=== PATIENT | female | born 1945 | race Caucasian/White ===

== ENCOUNTER → 2019-01-28 | Day surgery (SDC) | payer OTHER ==
--- OUTSIDE RECORDS SUMMARY | 2019-01-28 09:16 | XMS REPORT | Summary of Care ---
:1945 Author Organization [facility] - Health Address [address] [place] [address] Care Team Providers Name Role Phone Unavailable Primary Care Provider Unavailable Encounter Details Date Type Department Care Team Description 01/20/2019 Orders Only [facility] Doctor Unassigned, No [address] [facility] [place] [address] [address] [place] [address] Allergies No Known Allergiesdocumented as of this encounter (statuses as of 01/20/2019) Medications Medication Sig Dispensed Refills Start Date End Date Status MULTIVITS W-FE,OTHER Take 1 Tab by 0 Active MIN/LUT (CENTRUM SILVER mouth daily. ULTRA WOMEN'S ORAL) Cholecalciferol, Vitamin Take 2 Caps by 0 Active D3, (VITAMIN D3) 1,000 mouth daily. unit Cap aspirin 81 mg EC tablet Take 81 mg by 0 Active mouth daily. Lysine (L-LYSINE EXTRA Take 1 Tab by 0 Active STRENGTH) 1,000 mg Tab mouth as needed. dicyclomine (BENTYL) 20 Take 1 Tab by 20 Tab 0 07/13/2015 Active mg tablet mouth 4 (four) times daily. ondansetron (ZOFRAN, Take 1 Tab by 12 Tab 0 07/13/2015 Active HYDROCHLORIDE,) 4 mg mouth every 8 tablet (eight) hours as needed for Nausea and Vomiting (N/V). alendronate 70 mg tablet 0 10/27/2018 Active mupirocin 2 % Apply to 22 g 0 11/10/2018 Active ointmentIndications: area(s) 3 Paronychia of finger, (three) times right daily. Rub in well to right fingernail 3 times a day. methylPREDNISolone 4 mg Take by mouth 21 Each 0 12/03/2018 Active tabletsIndications: SEE-INSTRUCTIONS Allergic reaction, . follow package initial encounter, directions Periorbital erythema documented as of this encounter (statuses as of 01/20/2019) Active Problems Problem Noted Date S/P laparoscopic cholecystectomy 12/31/2014 documented as of this encounter (statuses as of 01/20/2019) Social History Tobacco Use Types Packs/Day Years Used Date Never Smoker Smokeless Tobacco: Never Used Alcohol Use Drinks/Week oz/Week Comments No Sex Assigned at Date Recorded Not on file Job Start Date Occupation Industry Not on file Not on file Not on file Travel History Travel Start Travel End No recent travel history available. documented as of this encounter Last Filed Vital Signs Not on filedocumented in this encounter Plan of Treatment Health Maintenance Due Date Last Done Comments DTaP,Tdap,and Td Vaccines (1 - Tdap) 1962 COLONOSCOPY 1993 Zoster Recombinant Vaccine (SHINGRIX) 1993 (1 of 2) Medicare Wellness Visit 2008 PNEUMOCOCCAL VACCINES 65+ (1 of 2 - 2008 PCV13) INFLUENZA VACCINE (#1) 2019 MAMMOGRAM 02/20/2019 02/20/2018, 03/05/2017, 03/02/2016 Osteoporosis Screening Completed 02/20/2018 documented as of this encounter Procedures Procedure Name Priority Date/Time Associated Diagnosis Comments NOTICE OF BILLING Routine 01/20/2019 6:08 PM CDT PRACTICES FOR MEDICARE PATIENTS documented in this encounter Results Not on filedocumented in this encounter Insurance Payer Benefit Plan Subscriber ID Effective Phone Address Type / Group Dates AETNA - AETNA [id number] 2013-Farhad [address] Medicare Adv MANAGED MEDICARE ADV nt [id number] [place] [address] documented as of this encounter
--- OUTSIDE RECORDS SUMMARY | 2019-01-28 09:16 | XMS REPORT | Summary of Care ---
:1945 Author Organization [facility] Address [address] [place] [id number] Care Team Providers Name Role Phone Violette Almanza MD Primary Care Provider Reason for Referral Radiology Services (Routine) Status Reason Specialty Diagnoses / Referred By Referred To Procedures Contact Contact Closed Diagnostic Diagnoses Solitary thyroid nodule Ortega, Radiology Procedures US HEAD NECK Joan J [address] [place] [address] Radiology Services (Routine) Status Reason Specialty Diagnoses / Referred By Referred To Procedures Contact Contact Closed Diagnostic Diagnoses Solitary thyroid nodule Ortega, Radiology Procedures US HEAD NECK Joan J [address] [place] [address] Reason for Visit Radiology Services (Routine) Status Reason Specialty Diagnoses / Referred By Referred To Procedures Contact Contact Closed Diagnostic Diagnoses Solitary thyroid nodule Ortega, Radiology Procedures US HEAD NECK Joan J [address] [place] [address] Encounter Details Date Type Department Care Team Description 01/01/2019 Hospital Encounter [facility] Arrived [facility] [address] [place] [address] [address] [place] [address] [place] [address] [place] [id number] Allergies No Known Allergiesdocumented as of this encounter (statuses as of 01/02/2019) Medications Medication Sig Dispensed Refills Start Date [...] as of this encounter (statuses as of 01/02/2019) Active Problems Problem Noted Date S/P laparoscopic cholecystectomy 12/31/2014 documented as of this encounter (statuses as of 01/02/2019) Social History Tobacco Use Types Packs/Day Years [...] encounter Procedures Procedure Name Priority Date/Time Associated Comments Diagnosis US HEAD NECK Routine 01/01/2019 4:34 PM Solitary thyroid Results for this CDT nodule procedure are in the results section. CONSENT/REFUSAL FOR Routine 01/01/2019 3:52 PM DIAGNOSIS AND CDT TREATMENT ASSIGNMENT OF Routine 01/01/2019 3:52 PM BENEFITS CDT documented in this encounter Results US HEAD NECK (01/01/2019 4:34 PM CDT) Specimen Impressions Performed At 1.3 cm nodule in the left lobe of the thyroid gland. Monitoring PACS/VR/DOSE suggested by follow-up thyroid ultrasound in 4-6 months. Narrative Performed At HISTORY: Solitary thyroid nodule found on CT scan of neck. PACS/VR/DOSE TECHNIQUE: Thyroid gland is evaluated in multiple planes without and with color imaging. FINDINGS: Right lobe of the thyroid gland is 3.5 x 1.2 x 1.4 cm (3.3 cc), isthmus portion is 2.0 mm in thickness, left lobe is 4.2 x 1.4 x 1.6 cm (5.1 cc) in size. 3 x 2 mm and 2 x 2 mm small cysts are seen in the right lobe. Left lobe contains a 13 x 9 mm mass with complex multicystic spongiform appearance with few colloid type calcifications suspected in it. Estimated total number of nodules ?1cm: 1. Number of spongiform nodules ?2cm not described below (TR1): 0. Number of mixed cystic and solid nodules ?1.5cm not described below (TR2): 0. Nodule#: 1 *Maximum size: 1.3 cm *Location: Left thyroid lobe *Composition: Spongiform (0) *Echogenicity: Hypoechoic (2) *Shape: Not taller than wide (0) *Margins: Smooth (0) *Echogenic foci: Large comet-tail artifacts (0) *ACR TI-RADS total points: 2 *ACR TI-RADS risk category: TR 2 (2 points) Procedure Note [facility], Radiant Results Inft User - 01/01/2019 4:41 PM CDT HISTORY: Solitary thyroid nodule found on CT scan of neck. TECHNIQUE: Thyroid gland is evaluated in multiple planes without and with color imaging. FINDINGS: Right lobe of the thyroid gland is 3.5 x 1.2 x 1.4 cm (3.3 cc), isthmus portion is 2.0 mm in thickness, left lobe is 4.2 x 1.4 x 1.6 cm (5.1 cc) in size. 3 x 2 mm and 2 x 2 mm small cysts are seen in the right lobe. Left lobe contains a 13 x 9 mm mass with complex multicystic spongiform appearance with few colloid type calcifications suspected in it. Estimated total number of nodules ?1cm: 1. Number of spongiform nodules ?2cm not described below (TR1): 0. Number of mixed cystic and solid nodules ?1.5cm not described below (TR2): 0. Nodule#: 1 * Maximum size: 1.3 cm * Location: Left thyroid lobe * Composition: Spongiform (0) * Echogenicity: Hypoechoic (2) * Shape: Not taller than wide (0) * Margins: Smooth (0) * Echogenic foci: Large comet-tail artifacts (0) * ACR TI-RADS total points: 2 * ACR TI-RADS risk category: TR 2 (2 points) IMPRESSION 1.3 cm nodule in the left lobe of the thyroid gland. Monitoring suggested by follow-up thyroid ultrasound in 4-6 months. Performing Organization Address City/State/Zipcode Phone Number PACS/VR/DOSE documented in this encounter Visit Diagnoses Diagnosis Solitary thyroid nodule Nontoxic uninodular goiter documented in this encounter Insurance Payer Benefit Plan Subscriber ID Effective Phone Address Type / Group Dates AETNA - AETNA [id number] 2013-Farhad [address] [place] Medicare Adv MANAGED MEDICARE ADV nt [id number] [place] [address] (Home) [place] [address] documented as of this encounter
--- OUTSIDE RECORDS SUMMARY | 2019-01-28 09:16 | XMS REPORT | Summary of Care ---
:1945 Author Organization [facility] Address [address] [place] [address] Care Team Providers Name Role Phone Pcp, Patient Does Not Have A Primary Care Provider Reason for Visit Reason Comments Ear Pain left ear pain- 1 week Encounter Details Date Type Department Care Team Description 01/20/2019 Urgent Care [facility] Unknown, Attending Right ear impacted Urgent Care Rylie Manzanares, VIDYA [address] [facility] [address] [place] [address] cerumen (Primary Dx) [address] [facility], [place] [address] Allergies No Known Allergiesdocumented as of this [...] of this encounter Last Filed Vital Signs Vital Sign Reading Time Taken Comments Blood Pressure 125/81 01/20/2019 6:13 PM CDT Pulse 76 01/20/2019 6:13 PM CDT Temperature 36.6 C (97.8 F) 01/20/2019 6:13 PM CDT Respiratory Rate 16 01/20/2019 6:13 PM CDT Oxygen Saturation 98% 01/20/2019 6:13 PM CDT Inhaled Oxygen Concentration - - Weight 54.7 kg (120 lb 9.6 oz) 01/20/2019 6:13 PM CDT Height 165.1 cm (5' 5") 01/20/2019 6:13 PM CDT Body Mass Index 20.07 01/20/2019 6:13 PM CDT documented in this encounter Patient Instructions Patient InstructionsRylie Manzanares FNP - 01/20/2019 6:00 PM CDT Ear Wax Removal at Home: To wash ear wax out of the ears, you may try using Ceruminex or Debrox ( available over the counter),mineral oil or liquid colace. Place 2 - 3 drops in each ear twice per day for five days out of every month. Gently flush ears with warm water and a bulb syringe. Do not use Q-tips as this will push the wax deeper into the ears. Impacted Earwax Inner ear structures including ear canal and eardrum. Impacted earwax is a buildup of the natural wax in the ear (cerumen). Impacted earwax is very common. It can cause symptoms such as hearing loss. It can also make it difficult for a doctor to examine your ear. Understanding earwax Tiny glands in your ear make substances that combine with skin cells to form earwax. Earwax helps protect your ear canal from water, dirt, infection, and injury. Over time, earwax travels from theinner part of your ear canal to the entrance of the canal. Then it falls away naturally. But in somecases, it cant travel to the entrance of the canal. This may be because of a health condition or objects put in the ear. With age, earwax tends to become harder and less fluid. Older adults are morelikely to have problems with earwax buildup. What causes impacted earwax? Earwax can build up because of many health conditions. Some cause a physical blockage. Others cause too much earwax to be made. Health conditions that can cause earwax buildup include: Use of cotton swabs to clean deep in the ear canal Bony blockage in the ear (osteoma or exostoses) Infections, such as infection of the outer ear (external otitis) Skin disease, such as eczema Autoimmune diseases, such as lupus A narrowed ear canal from , chronic inflammation, or injury Too much earwax because of injury Too much earwax because of water in the ear canal Objects repeatedly placed in the ear can also cause impacted earwax. For example , putting cotton swabs in the ear may push the wax deeper into the ear. Over time, this may cause blockage. Hearing aids,swimming plugs, and swim molds can cause the same problem when used again and again. In some cases, the cause of impacted earwax is not known. Symptoms of impacted earwax Excess earwax usually does not cause any symptoms, unless there is a large amount of buildup. Then it may cause symptoms such as: Hearing loss Earache Sense of ear fullness Itching in the ear Odor from the ear Ear drainage Dizziness Ringing in the ears Cough Treatment for impacted earwax If you dont have symptoms, you may not need treatment. Often, the earwax goes away on its own with time. If you have symptoms, you may have one or more treatments such as: Eardrops to soften the earwax. This helps it leave the ear over time. Rinsing (irrigation) of the ear canal with water. This is done in a doctor s office. Removal of the earwax with small tools. This is also done in a doctors office. In rare cases, some treatments for earwax removal may cause complications such as: Infection of the outer ear (otitis external) Earache Short-term hearing loss Dizziness Water trapped in the ear canal Hole in the eardrum Ringing in the ears Bleeding from the ear Talk with your healthcare provider about which risks apply most to you. Dont use these at home Healthcare providers do not advise use of ear candles or ear vacuum kits. These methods are not shown to work and may cause problems. Preventing impacted earwax You may not be able to prevent impacted earwax if you have a health condition that causes it, such as eczema. In other cases, you may be able to prevent earwax buildup by: Using ear drops once a week Having routine cleaning of the ear about every 6 months Not using cotton swabs in the ear When to call the healthcare provider Call your healthcare provider if you have symptoms of impacted earwax. Also call right away if you have severe symptoms after earwax removal. These may include bleeding or severe ear pain. Date Last Reviewed: 09/11/[id number] The [employer]. [address] [place] [address]. All rights reserved. This information is not intended as a substitute for professional medical care. Always follow your healthcare professional's instructions. documented in this encounter Progress Notes Rylie Manzanares FNP - 01/20/2019 6:00 PM CDT Cc: Chief Complaint Patient presents with Ear Pain left ear pain- 1 week Tracy Santos is a 73 year old female that presents to the urgent care for dizziness and left ear feeling muffled. She reports that this has happened previously, requiring her to need her ear irrigated. Denies any ear pain. Ear Pain Location: Left Behind ear: No abnormality Severity: No pain Onset quality: Gradual Duration: 1 week Timing: Constant Progression: Unchanged Chronicity: New Relieved by: OTC medications Worsened by: Nothing Associated symptoms: hearing loss (decreased in left) Associated symptoms: no congestion, no cough, no ear discharge, no fever, no rash, no sore throat and no tinnitus Allergies Tracy has No Known Allergies. Medications Outpatient Medications Prior to Visit Medication Sig Dispense Refill methylPREDNISolone 4 mg tablets Take by mouth SEE-INSTRUCTIONS. follow package directions 21 Each 0 alendronate 70 mg tablet mupirocin 2 % ointment Apply to area(s) 3 (three) times daily. Rub in well to right fingernail 3 times a day. 22 g 0 dicyclomine (BENTYL) 20 mg tablet Take 1 Tab by mouth 4 (four) times daily. 20 Tab 0 ondansetron (ZOFRAN, HYDROCHLORIDE,) 4 mg tablet Take 1 Tab by mouth every 8 (eight) hours asneeded for Nausea and Vomiting (N/V). 12 Tab 0 aspirin 81 mg EC tablet Take 81 mg by mouth daily. Cholecalciferol, Vitamin D3, (VITAMIN D3) 1,000 unit Cap Take 2 Caps by mouth daily. Lysine (L-LYSINE EXTRA STRENGTH) 1,000 mg Tab Take 1 Tab by mouth as needed. MULTIVITS W-FE,OTHER MIN/LUT (CENTRUM SILVER ULTRA WOMEN'S ORAL) Take 1 Tab by mouth daily. No facility-administered medications prior to visit. 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 Past Surgical History: Procedure Laterality Date EYE SURGERY L eye surgery as an infant LAPAROSCOPIC CHOLECYSTECTOMY N/A 12/31/2014 Surgeon: Evaristo Booker MD; [place] [facility] [place] AREA SURGERY Left L knee meniscus repair Social History Socioeconomic History Marital status: Spouse name: Not on file Number of children: Not on file Years of education: Not on file Highest education level: Not on file Occupational History Not on file Social Needs Financial resource strain: Not on file Food insecurity: Worry: Not on file Inability: Not on file Transportation needs: Medical: Not on file Non-medical: Not on file Tobacco Use Smoking status: Never Smoker Smokeless tobacco: Never Used Substance and Sexual Activity Alcohol use: No Drug use: No Sexual activity: Not on file Lifestyle Physical activity: Days per week: Not on file Minutes per session: Not on file Stress: Not on file Relationships Social connections: Talks on phone: Not on file Gets together: Not on file Attends scientology service: Not on file Active member of club or organization: Not on file Attends meetings of clubs or organizations: Not on file Relationship status: Not on file Intimate partner violence: Fear of current or ex partner: Not on file Emotionally abused: Not on file Physically abused: Not on file Forced sexual activity: Not on file Other Topics Concern Not on file Social History Narrative Not on file Family History Problem Relation Age of Onset Breast Cancer Mother Breast Cancer Maternal Aunt Review of Systems Constitutional: Negative for chills and fever. HENT: Positive for hearing loss (decreased in left). Negative for congestion, ear discharge, ear pain, sore throat and tinnitus. Respiratory: Negative for cough. Musculoskeletal: Negative for arthralgias and myalgias. Skin: Negative for rash. Neurological: Positive for dizziness (intermittently). Psychiatric/Behavioral: Negative for agitation and confusion. Vital Signs BP 125/81 | Pulse 76 | Temp 36.6 C (97.8 F) (Oral) | Resp 16 | Ht 5' 5" (1.651 m) | Wt 120 lb 9.6 oz (54.7 kg) | SpO2 98% | BMI 20.07 kg/m Physical Exam Constitutional: She is oriented to person, place, and time. She appears well- developed and well-nourished. No distress. HENT: Head: Normocephalic and atraumatic. Right Ear: Tympanic membrane and ear canal normal. No drainage, swelling or tenderness. Tympanic membrane is not erythematous and not bulging. Left Ear: Tympanic membrane and ear canal normal. No drainage, swelling or tenderness. Tympanic membrane is not erythematous and not bulging. Nose: Nose normal. Mouth/Throat: Uvula is midline, oropharynx is clear and moist and mucous membranes are normal. Right ear canal obstructed with cerumen. Following irrigation, right ear exam documented as above. Eyes: Conjunctivae are normal. Cardiovascular: Normal rate, regular rhythm, normal heart sounds and intact distal pulses. Pulmonary/Chest: Effort normal. Lymphadenopathy: Head (right side): No tonsillar adenopathy present. Head (left side): No tonsillar adenopathy present. She has no cervical adenopathy. Neurological: She is alert and oriented to person, place, and time. Gait normal. Skin: Skin is warm and dry. No rash noted. Psychiatric: She has a normal mood and affect. Her behavior is normal. Thought content normal. Nursing note and vitals reviewed. Assessment/Plan 1. Right ear impacted cerumen - reassured patient that exam of left ear is normal with no evidence of impacted cerumen or infection. - right ear irrigation performed to clear wax from ear canal. - educated patient about Ear Wax Removal at Home: To wash ear wax out of the ears, you may try using Ceruminex or Debrox ( available over the counter),mineral oil or liquid colace. Place 2 - 3 drops in each ear twice per day for five days out of every month. Gently flush ears with warm water and a bulb syringe. Do not use Q-tips as this will push the wax deeper into the ears. - Advised to follow up with PCP, return to Urgent Care, or go to the nearest Emergency Department sooner for any new, worsening, persistent, or concerning symptoms. Plan of care, desired health behaviors, goals, and medication discussed with patient. Education resources provided and reviewed with AVS. Patient/guardian/family verbalized understanding & agrees to plan of care. This visit did not involve counseling and coordination that comprised more than 50% of the visit time. If applicable, the [facility] database was accessed to review any controlled substance prescription claims data. The [employer] prescription claims data in [employer] was reviewed to assess patient compliance with the medication treatment plan. VIDYA Hodges 01/20/2019 6:43 PM documented in this encounter Plan of Treatment Health Maintenance Due Date Last Done Comments DTaP,Tdap,and Td Vaccines (1 - Tdap) 1962 COLONOSCOPY 1993 Zoster Recombinant Vaccine (SHINGRIX) 1993 (1 of 2) Medicare Wellness Visit 2008 PNEUMOCOCCAL VACCINES 65+ (1 of 2 - 2008 PCV13) INFLUENZA VACCINE (#1) 2019 MAMMOGRAM 02/20/2019 02/20/2018, 03/05/2017, 03/02/2016 Osteoporosis Screening Completed 02/20/2018 documented as of this encounter Results Not on filedocumented in this encounter Visit Diagnoses Diagnosis Right ear impacted cerumen - Primary Impacted cerumen documented in this encounter Insurance Payer Benefit Plan Subscriber ID Effective Phone Address Type / Group Dates AETNA - AETNA [id number] 2013-Farhad [address] Medicare Adv MANAGED MEDICARE ADV nt [id number] [place] [address] documented as of this encounter
--- OUTSIDE RECORDS SUMMARY | 2019-01-28 09:17 | XMS REPORT ---
:1945 [facility] Address [address] [place] [address] [address]. [address] [place] [address] Care Team Providers Name Role Phone Unavailable Unavailable Unavailable Problems This patient has no known problems. Allergies, Adverse Reactions, Alerts This patient has no known allergies or adverse reactions. Medications This patient has no known medications.
--- NOTE | 2019-01-28 10:48 | RAD REPORT ---
EXAM DESCRIPTION: US - Extremity Nonvascular Complete - 01/28/2019 10:27 am CLINICAL HISTORY: D37.030,E04.1,R51,Z85.840 COMPARISON: No comparisons TECHNIQUE: Real-time sonographic assessment of the right parotid gland was performed for possible ul trasound-guided biopsy procedure. FINDINGS: Radiologist performed ultrasound of the right parotid gland demonstrates a circumscribed 2 .6 cm mass deep in the right parotid. The mass is situated deep in the gland, within an anterior approach for biopsy was block due to the m andible. An inferior approach to the lesion was also evaluated however the adjacent internal carotid artery and jugular vein prevents safe biopsy from inferior approach. Unfortunately, the mass is not s afely amenable to ultrasound-guided biopsy approach despite multiple attempts to locate a suitable wi ndow. Surgical excision of the mass may be considered. These findings were discussed in detail in person with the patient. IMPRESSION: 2.6 cm circumscribed mass in the deep aspect of the right parotid gland is not amenable to ultrasound-guided core biopsy due to the factors detailed above. These findings were discussed in detail with the patient in person by radiologist.
== END ==
LOC: FNA 09:12
PROVIDERS: ATTEND Otolaryngology
DX: D37.030 Neoplasm of uncertain behavior of the parotid salivary glands (principal); Z53.09 Procedure and treatment not carried out because of other contraindication; E04.1 Nontoxic single thyroid nodule; R51 Headache; Z85.840 Personal history of malignant neoplasm of eye
CPT/HCPCS: 76881

== ENCOUNTER 2024-07-29 08:24 | Day surgery (SDC) | payer OTHER ==
[2024-07-29 10:05] LABS: Absolute Basophils 0.1 K/uL (0-0.5); Absolute Eosinophils 0.2 K/uL (0-0.5); Absolute Lymphocytes (CBC) 1.6 K/uL (0.7-4.9); Absolute Monocytes 0.5 K/uL (0.1-1.3); Absolute Neutrophil 4.1 K/uL (1.8-8.0); Eosinophils % 3.6 % (0-4.4); Hematocrit 41.5 % (36.0-45.0); Hemoglobin 14.3 g/dL (12.0-15.0); Lymphocytes % 24.5 % (15.3-44.8); MCH 30.4 pg (27.0-35.0); MCHC 34.4 g/dL (32.0-36.0); MCV 88.2 fL (80-100); MPV 8.6 fL (7.6-11.3); Monocytes % 7.6 % (3.3-12.3); Neutrophils % 63.3 % (41.7-73.7); Platelets 248 thou/uL (152-406); RBC Red Blood Cell Count 4.71 M/uL (3.86-4.86)
[2024-07-29 10:10] LABS: Protime INR 0.96
[2024-07-29 10:17] LABS: ALT/SGPT 32 U/L (13-56); AST/SGOT 28 U/L (15-37); Albumin 3.5 g/dL (3.4-5.0); Albumin/Globulin Ratio 0.9 (1.1-1.8); Alkaline Phosphatase 120 U/L (45-117); Anion Gap 7.9 mEq/L (5.0-15.0); BUN Blood Urea Nitrogen 18 mg/dL (7-18); Bicarbonate 30 mEq/L (21-32); Bilirubin Total 0.5 mg/dL (0.2-1.0); Globulin 3.9 g/dL (2.3-3.5); Glomerular Filtration Rate 85 ml/min (=/>90); Glucose Level 96 mg/dL (74-106); Potassium 3.9 mEq/L (3.5-5.1); Protein, Total 7.4 g/dL (6.4-8.2); Sodium Level 134 mEq/L (136-145)
[2024-07-29 10:20] LABS: Bilirubin Direct < 0.2 mg/dL (0-0.2); Bilirubin Indirect, Calculated 0.3 mg/dL (0.2-0.8)
[2024-07-29 13:49] VITALS: BMI 20.2
[2024-07-29 14:04] LABS: CSF Glucose 58 mg/dL (40-70)
[2024-07-29 15:04] VITALS: BP 108/58; TEMP 98.1; O2SAT 98
[2024-07-29 15:29] LABS: Fluid Total Volume 13.5 ml; Tube # #2
[2024-07-29 15:30] LABS: Appearance CLEAR (CLEAR); Body Fluid Source CSF; Body Fluid WBC 1 /mm^3; Color of Supernate Not Xanthochromic (Not Xantho); Color of fluid Colorless (COLORLESS); Fluid Total Cells Count 2
[2024-07-29 15:31] LABS: Body Fluid Lymphocytes 0 %
--- NOTE | 2024-07-29 20:32 | RAD REPORT ---
XR SPINE LUMBAR PUNCTURE CLINICAL INDICATION: Memory loss. Cognitive decline. TECHNIQUE: The risks (including the risks of bleeding, infection, headache, nerve injury), benefits, and alternatives of the procedure were carefully explained to the patient who wished to proceed. Informed written consent was obtained . The patient was placed prone into the fluoroscopy suite. Skin and deeper tissues were anesthetized wi th lidocaine. Under fluoroscopic guidance a 22-gauge spinal needle was advanced into the thecal sac at the T2-3 lev el. Approximately 13 cc CSF removed and sent to the lab. Fluoroscopy time 1.2 minutes. One fluoroscopic spot image obtained No complication. IMPRESSION: Lumbar puncture
== END 2024-07-29 15:10 | disposition home or self-care (01) ==
LOC: DS 08:24
PROVIDERS: ATTEND Psychiatry & Neurology Neurology with Special Qualifications in Child Neurology
PROC: 009U3ZX Drainage of Spinal Canal, Percutaneous Approach, Diagnostic (ICD-10-PCS; principal; 2024-07-29)
PROC: B01BZZZ Fluoroscopy of Spinal Cord (ICD-10-PCS; 2024-07-29)
DX: F03.90 Unspecified dementia, unspecified severity, without behavioral disturbance, psychotic disturbance, mood disturbance, and anxiety (principal); C69.92 Malignant neoplasm of unspecified site of left eye; H54.40 Blindness, one eye, unspecified eye
CPT/HCPCS: 36415; 77003; 80048; 80076; 82542; 82945; 84157; 85025; 85610; 85730; 89050

== ENCOUNTER 2025-03-13 13:21 | Emergency (ER) | payer OTHER ==
[2025-03-13 13:55] LABS: Absolute Lymphocytes (CBC) 1.5 K/uL (0.7-4.9); Hematocrit 32.3 % (36.0-45.0); Hemoglobin 11.0 g/dL (12.0-15.0); MCH 30.5 pg (27.0-35.0); MCHC 34.0 g/dL (32.0-36.0); MCV 89.8 fL (80-100); MPV 7.7 fL (7.6-11.3); Nucleated RBC Absolute Count 0.0 (0-0); Nucleated Red Blood Cells % 0.0 % (0-0); RBC Red Blood Cell Count 3.59 M/uL (3.86-4.86); White Blood Count 9.20 thou/uL (4.3-10.9)
[2025-03-13 14:05] LABS: PT Prothrombin Time 13.3 SECONDS (10-13.0); PTT, Activated Partial Thromb 31.1 SECONDS (27.2-37.4); Protime INR 1.18
[2025-03-13 14:22] LABS: ALT/SGPT 20.0 U/L (13-56); AST/SGOT 17.0 U/L (15-37); Albumin 2.7 g/dL (3.4-5.0); Albumin/Globulin Ratio 0.6 (1.1-1.8); Alkaline Phosphatase 92.0 U/L (45-117); Anion Gap 8.3 mEq/L (5.0-15.0); BUN Blood Urea Nitrogen 23.0 mg/dL (7-18); Globulin 4.4 g/dL (2.3-3.5); Glucose Level 112.0 mg/dL (74-106); Potassium 4.3 mEq/L (3.5-5.1); Uric Acid 3.5 mg/dL (2.6-6.0)
--- NOTE | 2025-03-13 14:36 | RAD REPORT ---
EXAMINATION: XR Foot Right 3 View CLINICAL INDICATION: Female, 79 years old. BR MAIN R/o osteomyelitis;Pain;Swelling Bed Name: 15 TECHNIQUE: 3 view radiographs of the right foot were obtained. COMPARISON: No prior exam. FINDINGS: No evidence of fracture or dislocation. Normal sequelae of prior amputation at the level of the third digit proximal phalanx midshaft. No evidence of cortical erosion. Soft tissue swelling about the forefoot. No osseous destructive changes. No significant degenerative changes. IMPRESSION: No findings to suggest acute ongoing osteomyelitis. 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 If t here is concern for ongoing acute osseous mellitus, additional evaluation by MRI with provide improved assessment.
--- NOTE | 2025-03-13 14:53 | EDPHYS ---
Physician Documentation [facility] Name: Ashley Head Age: 79 yrs Sex: Female : 1945 Arrival Date: 03/13/2025 Time: 13:21 Bed 15 Private MD: ED Physician Malcom Arroyo HPI: 03/13 14:17 This 79 yrs old Female presents to ER via Ambulatory with complaints of Foot dr5 Pain. 14:17 The complaints affect the dorsum of right foot. Onset: The symptoms/episode dr5 began/occurred 8 day(s) ago. Patient is an 79-year-old female with history of arthritis and dementia coming in with right foot pain and redness has been going on for past few days. Patient reports that she went to the ER for same symptoms and was told to follow-up with orthopedics. Patient reports that she followed with orthopedics yesterday and was told to come to the ER for redness and swelling.. Historical: - Allergies: 13:36 No Known Allergies; dd2 - PMHx: 13:36 Arthritis; Dementia; dd2 - PSHx: 13:36 None; dd2 - Immunization history:: Adult Immunizations up to date. - Infectious Disease History:: Denies. - Social history:: Smoking status: Patient denies any tobacco usage or history of. ROS: 14:17 Constitutional: as per hpi dr5 Exam: 14:17 Constitutional: This is a well developed, well nourished patient who is awake, alert, dr5 and in no acute distress. Head/Face: Normocephalic, atraumatic. Eyes: Pupils equal round and reactive to light, extra-ocular motions intact. Lids and lashes normal. Conjunctiva and sclera are non-icteric and not injected. Cornea within normal limits. Periorbital areas with no swelling, redness, or edema. Neck: Trachea midline, no thyromegaly or masses palpated, and no cervical lymphadenopathy. Supple, full range of motion without nuchal rigidity, or vertebral point tenderness. No Meningismus. Chest/axilla: Normal chest wall appearance and motion. Nontender with no deformity. No lesions are appreciated. Cardiovascular: Regular rate and rhythm with a normal S1 and S2. Normal PMI, no JVD. No pulse deficits. Respiratory: Lungs have equal breath sounds bilaterally, clear to auscultation. No rales, rhonchi or wheezes noted. No increased work of breathing, no retractions or nasal flaring. Back: No spinal tenderness. No costovertebral tenderness. Full range of motion. Skin: Warm, dry with normal turgor. Normal color with no rashes, no lesions, and no evidence of cellulitis. Neuro: Awake and alert, GCS 15, oriented to person, place, time, and situation. Cranial nerves II-XII grossly intact. Motor strength 5/5 in all extremities. Sensory grossly intact. Cerebellar exam normal. Normal gait. 14:17 Musculoskeletal/extremity: Extremities: grossly normal except: noted in the right foot: pain, swelling, tenderness, ROM: no acute changes, intact in all extremities, Circulation is intact in all extremities. Sensation intact. Vital Signs: 13:35 BP 141 / 67; Pulse 67; Resp 16; Temp 98.4; Pulse Ox 99% on R/A; Weight 60.78 kg; Pain dd2 6/10; 14:50 BP 127 / 77; Pulse 59; Resp 20; Temp 98.3; Pulse Ox 99% ; kj2 13:35 Pain Scale: Adult dd2 MDM: 13:26 Medical Screening Exam initiated dr5 14:56 Differential diagnosis: closed fracture, contusion, abrasion, tendonitis, Fracture, dr5 Osteomyelitis, Cellulitis. Data reviewed: vital signs, nurses notes, lab test result(s), CBC, white blood cell count, hemoglobin, hematocrit, platelets, electrolytes, sodium, potassium, chloride, serum bicarbonate, BUN, creatinine, serum glucose, radiologic studies, plain films. Consideration of Admission/Observation Escalation of care including admission/observation considered. Escalation considered patient found to have osteomyelitis or fever. I considered the following discharge prescriptions or medication management in the emergency department I discussed and recommended Over The Counter medications. Independent interpretation of the following test(s) in the Emergency Department X-Ray: My interpretation is Independent interpretation did not reveal fracture on right foot. Care significantly affected by the following chronic conditions: Arthritis. Care significantly affected by the following Social Determinants of Health: Poor access to healthcare and/or lack of insurance, Poor access to transportation, Problems related to employment. Counseling: I had a detailed discussion with the patient and/or guardian regarding the historical points, exam findings, and any diagnostic results supporting the discharge/admit diagnosis, the presence of at least one elevated blood pressure reading (>120/80) during this emergency department visit, lab results, radiology results, the need for outpatient follow up, for definitive care, a family practitioner, to return to the emergency department if symptoms worsen or persist or if there are any questions or concerns that arise at home. Special discussion: I discussed with the patient/guardian in detail that at this point there is no indication for admission to the hospital. It is understood, however, that if the symptoms persist or worsen the patient needs to return immediately for re-evaluation. Based on the history and exam findings, there is no indication for further emergent testing or inpatient evaluation. I discussed with the patient/guardian the need to see the primary care provider for further evaluation of the symptoms. ED course: Keflex prescribed for cellulitis. Uric acid level normal. All labs printed and will give to patient take to take to primary care doctor. All questions answered. Alternate Tylenol Motrin as needed for pain and fever. Strict ER precautions given. 03/13 13:34 Order name: CBC with Diff; Complete Time: 13:58 [facility] 03/13 13:34 Order name: CMP; Complete Time: 14:22 [facility] 03/13 13:34 Order name: Lactate w/ 2H reflex if indic.; Complete Time: 14:22 [facility] 03/13 13:34 Order name: Protime (+inr); Complete Time: 14:09 [facility] 03/13 13:34 Order name: Ptt, Activated; Complete Time: 14:09 [facility] 03/13 13:34 Order name: Uric Acid; Complete Time: 14:22 [facility] 03/13 13:34 Order name: Foot Right 3 View XRAY; Complete Time: 14:42 [facility] 03/13 13:34 Order name: EKG; Complete Time: 13:34 03/13 13:34 Order name: IV Saline Lock - Large Bore; Complete Time: 13:55 [facility] 03/13 13:34 Order name: Labs collected and sent; Complete Time: 13:55 [facility] 03/13 13:34 Order name: O2 Per Protocol; Complete Time: 13:55 [facility] 03/13 13:34 Order name: O2 Sat Monitoring; Complete Time: 13:55 [facility] 03/13 13:34 Order name: Vital Signs; Complete Time: 13:55 dr5 Administered Medications: No medications were administered Disposition: 15:23 Co-signature as Attending Physician, Malcom Arroyo MD I reviewed the patient's care rn provided by the Advanced Practice Provider and agree with the diagnosis and treatment plan. Disposition Summary: 03/13/25 14:53 Discharge Ordered Notes: Location: Home dr5 Condition: Stable dr5 Diagnosis - Cellulitis of right lower limb dr5 Followup: dr5 - With: Emergency Department - When: As needed - Reason: Worsening of condition Followup: dr5 - With: Private Physician - When: 1 - 2 days - Reason: Recheck today's complaints, Continuance of care, Re-evaluation by your physician Discharge Instructions: - Discharge Summary Sheet dr5 - Cellulitis, Adult dr5 Forms: - Medication Reconciliation Form dr5 - Patient Portal Instructions dr5 - Leadership Thank You Letter dr5 Prescriptions: - Cephalexin 500 mg Oral Capsule - take 1 capsule ORAL route every 12 hours for 10 days; 20 capsule; Refills: 0, dr5 Product Selection Permitted Signatures: Dispatcher [employer] EDMS Malcom Arroyo MD MD rn Jordan, Krystal RN RN kj2 ELLYN TRAORE RN RN dd2 Antonio Eaton, FIBERGLASS PRODUCT TESTER-C FIBERGLASS PRODUCT TESTER-Cdr5 Corrections: (The following items were deleted from the chart) 13:34 13:34 CBC+H.LAB.BRZ ordered. EDMS EDMS 13:34 13:34 COMPREHENSIVE METABOLIC PANEL+C.LAB.BRZ ordered. EDMS EDMS 13:34 13:34 LACTATE+C.LAB.BRZ ordered. EDMS EDMS 13:34 13:34 PROTIME (+INR)+COAG.LAB.BRZ ordered. EDMS EDMS 13:34 13:34 PTT, ACTIVATED+COAG.LAB.BRZ ordered. EDMS EDMS 13:34 13:34 URIC ACID+C.LAB.BRZ ordered. EDMS EDMS
--- NOTE | 2025-03-13 14:53 | ER ---
Nurse's Notes [facility] Name: Ashley Head Age: 79 yrs Sex: Female : 1945 Arrival Date: 03/13/2025 Time: 13:21 Bed 15 Private MD: Diagnosis: Cellulitis of right lower limb Presentation: 03/13 13:35 Chief complaint: Patient states: RT FOOT PAIN, REDNESS AND SWELLING X 1.5 WEEKS. PT dd2 REPORTS WAS PRESCRIBED MELOXICAM FOR HER FOOT BUT GETTING WORSE. Coronavirus screen: At this time, the client does not indicate any symptoms associated with coronavirus-19. Ebola Screen: No symptoms or risks identified at this time. Initial Sepsis Screen: Does the patient meet any 2 criteria? No. Patient's initial sepsis screen is negative. Does the patient have a suspected source of infection? No. Patient's initial sepsis screen is negative. Risk Assessment: Do you want to hurt yourself or someone else? Patient reports no desire to harm self or others. Onset of symptoms was February 25, 2025. 13:35 Method Of Arrival: Ambulatory dd2 13:35 Acuity: MALACHI 3 dd2 Triage Assessment: 13:36 General: Appears in no apparent distress. uncomfortable, Behavior is calm, cooperative, dd2 appropriate for age. Pain: Complains of pain in dorsum of right foot. Derm: Skin is red, DORSAL RT FOOT. Musculoskeletal: Swelling present in right foot. Historical: - Allergies: 13:36 No Known Allergies; dd2 - PMHx: 13:36 Arthritis; Dementia; dd2 - PSHx: 13:36 None; dd2 - Immunization history:: Adult Immunizations up to date. - Infectious Disease History:: Denies. - Social history:: Smoking status: Patient denies any tobacco usage or history of. Screenin:53 [facility] ED Fall Risk Assessment (Adult) History of falling in the last 3 months, kj2 including since admission No falls in past 3 months (0 pts) Confusion or Disorientation No (0 pts) Intoxicated or Sedated No (0 pts) Impaired Gait No (0 pts) Mobility Assist Device Used No (0 pt) Altered Elimination No (0 pt) Score/Fall Risk Level 0 - 2 = Low Risk Maintained a safe environment, Hourly rounding (assess needs \T\ fall precautionary measures) done. Abuse screen: Denies threats or abuse. Denies injuries from another. Nutritional screening: No deficits noted. Tuberculosis screening: No symptoms or risk factors identified. Assessment: 13:52 General: Appears in no apparent distress. Behavior is cooperative. Pain: Complains of kj2 pain in right foot Pain currently is 7 out of 10 on a pain scale. Neuro: Level of Consciousness is awake, alert, obeys commands, Oriented to person, place, time, situation. Cardiovascular: Patient's skin is warm and dry. Respiratory: Airway is patent Respiratory effort is even, unlabored. GI: No signs and/or symptoms were reported involving the gastrointestinal system. : No signs and/or symptoms were reported regarding the genitourinary system. 15:00 Reassessment: Patient appears in no apparent distress at this time. Patient and/or kj2 family updated on plan of care and expected duration. Pain level reassessed. Vital Signs: 13:35 BP 141 / 67; Pulse 67; Resp 16; Temp 98.4; Pulse Ox 99% on R/A; Weight 60.78 kg; Pain dd2 6/10; 14:50 BP 127 / 77; Pulse 59; Resp 20; Temp 98.3; Pulse Ox 99% ; kj2 13:35 Pain Scale: Adult dd2 ED Course: 13:26 Patient arrived in ED. al6 13:26 Antonio Eaton FNP-C [facility]5 13:26 Malcom Arroyo MD is Attending Physician. dr5 13:36 Triage completed. dd2 13:36 Arm band placed on right wrist. dd2 13:37 Viviana Cadet, RITCHIE is Primary Nurse. kj2 13:45 Inserted saline lock: 20 gauge in right antecubital area, using aseptic technique. kj2 Blood collected. Flushed with 10 mL NS. 13:53 Patient has correct armband on for positive identification. Bed in low position. Call kj2 light in reach. Adult w/ patient. Provided Education on: call light. 13:56 Foot Right 3 View XRAY In Process Unspecified. EDMS 15:04 No provider procedures requiring assistance completed. IV discontinued, intact, kj2 bleeding controlled, No redness/swelling at site. Pressure dressing applied. Administered Medications: No medications were administered Medication: 15:04 VIS not applicable for this client. kj2 Outcome: 14:53 Discharge ordered by . rbidget 15:04 Discharged to home via wheelchair, with family, kj2 15:04 Condition: stable 15:04 Discharge instructions given to patient, family, Instructed on discharge instructions, follow up and referral plans. Demonstrated understanding of instructions, follow-up care, 15:11 Patient left the ED. kj2 Signatures: Dispatcher [employer] EDViviana Eugene RN RN kj2 ELLYN TRAORE RN RN dd2 Antonio Eaton, SIGNAL MECHANIC-C SIGNAL MECHANIC-[facility] [id number] Yadira Guaman
[2025-03-13 15:15] VITALS: O2SAT 99
[2025-03-13 15:17] VITALS: BP 127/77; TEMP 98.3
== END 2025-03-13 15:11 | disposition home or self-care (01) ==
LOC: ER 13:21
DX: L03.115 Cellulitis of right lower limb (principal)
CPT/HCPCS: 36415; 80053; 83605; 84550; 85025; 85610; 85730; 99284